=== PATIENT | female | born 1950 | race Caucasian/White ===

== ENCOUNTER → 2016-11-12 | Outpatient (CLI) | payer MEDICARE, OTHER ==
[~2016-11-12] MED LIST: ACET-2321 PO; CA C1TAB91 PO; CAND32TA9 PO; CHOL200024 PO; CYAN10009 PO; EVEP1CAP2 PO; FISH1CAP59 PO; FLUO40CA49 PO; FOLI0.8T PO; HYDR-2540 PO; IBUP-1724 PO; LECI12002 PO; LEVO150T11 PO; LEVO175T9 PO; LUTE6CAP2 PO; MAGN400C PO; MELA1TAB21 PO; MICROLACTIN PO; MULT-1175 PO; NORT10CA2 PO; RED600TA PO; SENN-156 PO; TRAM50TA4 PO; TURM500C7 PO; [UNRECOGNIZED DRUG - OTHER] PO
== END ==
LOC: WC.BC 15:17
DX: Z12.31 Encounter for screening mammogram for malignant neoplasm of breast (principal)
CPT/HCPCS: 77063; G0202